=== PATIENT | male | born 1965 | race Caucasian/White ===

== ENCOUNTER 2021-02-19 18:05 | Outpatient (CLI) | payer BC | END 2021-02-19 18:06 | disposition EMS.NT | LOC: EMS 18:05 | DX: R55 Syncope and collapse (principal) ==

== ENCOUNTER 2021-02-19 19:14 | Emergency (ER) | payer BC, OTHER ==
--- NOTE | 2021-02-19 20:36 | ED Physician Documentation ---
History of Present Illness - Stated complaint Stated Complaint: PASSED OUT,GLF,FACE LAC - Chief complaint Chief Complaint: Neuro - History obtained from History obtained from: Patient - Additonal information Additional information: 55-year-old man with history of pneumonia 10 years ago with CHF at that time that he has since recovered from, currently only on lisinopril for high blood pressure, presents with coughing fits over the past couple of weeks. Patient is vaccinated against Covid but had an episode of Covid 3 weeks ago and has been having post Covid symptoms of postnasal drip and cough. Today he coughed so hard he states that he passed out, falling to the floor and cutting the bridge of his nose and also scraping his forehead. Unsure of his last tetanus shot. Review of Systems Ten Systems: 10 systems reviewed and negative Respiratory: reports: Cough Neurologic: reports: Syncope PD PAST MEDICAL HISTORY - Past Medical History Past Medical History: Yes Cardiovascular: Congestive heart failure, Hypertension Respiratory: Other - Present Medications Home Medications: Ambulatory Orders Medication Instructions Recorded Confirmed Lisinopril [Zestril] 20 mg PO 02/19/21 - Allergies Allergies/Adverse Reactions: Allergies Allergy/AdvReac Type Severity Reaction Status Date / Time ragweed pollen Allergy Mild Itching Verified 02/19/21 19:57 - Social History Does the pt smoke?: No Smoking Status: Never smoker Does the pt drink ETOH?: Yes ETOH Use: Liquor Does the pt have substance abuse?: No - POLST Patient has POLST: No PD ED PE NORMAL - Vitals Vital signs reviewed: Yes - General General: Alert and oriented X 3, No acute distress, Well developed/nourished - HEENT HEENT: Atraumatic, PERRL, EOMI - Neck Neck: Supple, no meningeal sign - Cardiac Cardiac: RRR - Respiratory Respiratory: No respiratory distress, Clear bilaterally - Abdomen Abdomen: Non tender, Non distended - Back Back: No CVA TTP - Derm Derm: Normal color, Warm and dry - Extremities Extremities: No deformity, No edema - Neuro Neuro: Alert and oriented X 3, shear tender 2-12 intact, No motor deficit, No sensory deficit, Normal speech - Psych Psych: Normal mood Results - Vitals Vitals: Vital Signs - 24 hr 02/19/21 02/19/21 02/19/21 19:18 19:49 21:20 Temperature 36.5 C Heart Rate 85 96 86 Respiratory 16 20 20 Rate Blood Pressure 160/80 H 163/116 H 139/105 H O2 Saturation 95 97 97 02/19/21 22:14 Temperature 36.5 C Heart Rate 82 Respiratory 16 Rate Blood Pressure 130/90 H O2 Saturation 98 Oxygen O2 Source Room air - EKG (time done) 1931 Rate: Rate (enter#) (86) Rhythm: NSR [place]: Other (LAFB) Intervals: Normal [place] Ischemia: Normal ST segments - Labs Labs: Laboratory Tests 02/19/21 02/19/21 02/19/21 21:13 21:13 21:13 WBC 8.0 RBC 5.06 Hgb 14.6 Hct 42.7 MCV 84.4 MCH 28.9 MCHC 34.2 RDW 12.8 Plt Count 305 MPV 8.8 Neut # (Auto) 4.9 Lymph # (Auto) 1.7 [place] # (Auto) 0.9 Eos # (Auto) 0.4 Baso # (Auto) 0.0 Absolute Nucleated RBC 0.00 Nucleated RBC % 0.0 Sodium 138 Potassium 3.7 Chloride 101 Carbon Dioxide 27 Anion Gap 10.0 BUN 15 Creatinine 0.8 Estimated GFR (MDRD) 101 Glucose 108 H Calcium 9.6 Total Bilirubin 0.5 AST 35 ALT 50 Alkaline Phosphatase 54 Troponin I High Sens 5.8 Total Protein 7.8 Albumin 4.1 Globulin 3.7 Albumin/Globulin Ratio 1.1 Lipase 41 PD MEDICAL DECISION MAKING - ED course ED course: 55yM presents with syncopal episode. 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 He has had normal echocardiogram in recent past and is currently just on lisinopril. strict return precautions discussed. patient will follow up with walk in clinic and cardiology. Departure - Departure Disposition: 01 Home, Self Care Clinical Impression: Syncope, Cough, Postnasal drip, Abrasion of nose Condition: Good Instructions: ED Syncope Vasovagal Follow-Up: Dorothy Conn MD [Provider Admit Priv/Credential] - Comments: You were seen in the emergency department for evaluation after a coughing fit resulting in passing out. Your labwork was normal and your EKG was a normal rhythm. You should follow up with [facility] and consider es tablishing care with a volunteer services specialist here. A referral has been provided. Return to the emergency department if you pass out again, have any new or worsening symptoms or other concerns. Over the counter medications to speak with your pharmacist about: - dextromethorphan (cough suppressant) - afrin nasal spray for congestion . 1 spray twice daily as needed Discharge Date/Time: 02/19/21 22:14
[2021-02-19] MEDS ORDERED: TETANUS/DIPHTHERIA/PERTUSSIS 0.5 ML SYRINGE IM ONE (21:04)
[2021-02-19] MEDS ORDERED: BACITRACIN ZINC OINT 1 PACKET TOP STA (21:06)
[2021-02-19 21:22] LABS: BASOPHILS % (AUTO) 0.4 %; EOSINOPHILS # (AUTO) 0.4 10^3/uL (0.0-0.7); EOSINOPHILS % (AUTO) 5.4 %; HCT - HEMATOCRIT 42.7 % (42.0-52.0); HGB - HEMOGLOBIN 14.6 g/dL (14.0-18.0); LYMPHOCYTES # (AUTO) 1.7 10^3/uL (1.5-3.5); LYMPHOCYTES % (AUTO) 21.8 %; MEAN CORPUSCULAR HEMOGLOBIN 28.9 pg (27.0-31.0); MEAN CORPUSCULAR HGB CONC 34.2 g/dL (32.0-36.0); MEAN CORPUSCULAR VOLUME 84.4 fL (80.0-94.0); MEAN PLATELET VOLUME 8.8 fL (7.4-11.4); MONOCYTES # (AUTO) 0.9 10^3/uL (0.0-1.0); MONOCYTES % (AUTO) 11.2 %; NEUTROPHILS # (AUTO) 4.9 10^3/uL (1.5-6.6); NEUTROPHILS % (AUTO) 60.8 %; PLT - PLATELET COUNT 305 10^3/uL (130-450); RED BLOOD COUNT 5.06 10^6/uL (4.70-6.10); RED CELL DISTRIBUTION WIDTH 12.8 % (12.0-15.0)
[2021-02-19 21:37] LABS: ALBUMIN 4.1 g/dL (3.2-5.5); ALBUMIN/GLOBULIN RATIO 1.1 (1.0-2.2); BILIRUBIN,TOTAL 0.5 mg/dL (0.2-1.0); CALCIUM 9.6 mg/dL (8.5-10.3); CREATININE 0.8 mg/dL (0.6-1.2); POTASSIUM 3.7 mmol/L (3.5-5.0); TOTAL PROTEIN 7.8 g/dL (6.7-8.2)
--- NOTE | 2021-02-19 21:51 | XRAY Report ---
PROCEDURE: Chest 1 View X-Ray INDICATIONS: Chest Pain TECHNIQUE: One view of the chest was acquired. COMPARISON: None. FINDINGS: Surgical changes and devices: None. Lungs and pleura: No pleural effusions or pneumothorax. Lungs are clear. Mediastinum: Mediastinal contours appear normal. Heart size is normal. Bones and chest wall: No suspicious bony lesions. Overlying soft tissues appear unremarkable. IMPRESSION: 1. No acute cardiopulmonary disease. Reviewed by: Ubaldo Platt MD on 02/19/2021 9:[address] [facility] Approved by: Ubaldo Platt MD on 02/19/2021 9:[address] [facility] Station ID: [id number]
[2021-02-19 22:16] VITALS: BP 130/90
== END 2021-02-19 22:14 | disposition home or self-care (01) ==
LOC: ED 19:14
DX: R55 Syncope and collapse (principal); R05.9 Cough, unspecified; R09.82 Postnasal drip; S00.31XA Abrasion of nose, initial encounter; S00.81XA Abrasion of other part of head, initial encounter; W08.XXXA Fall from other furniture, initial encounter; Z23 Encounter for immunization; I44.4 Left anterior fascicular block; I10 Essential (primary) hypertension
CPT/HCPCS: 36415; 71045; 80053; 83690; 84484; 85025; 90471; 90715; 93005; 99281; 99284; A9270

== ENCOUNTER 2021-04-24 08:36 | Outpatient (CLI) | payer BC ==
[2021-04-24 09:18] LABS: CHOL/HDL RATIO 5.8 (<5.0); CHOLESTEROL 244 mg/dL; HDL CHOLESTEROL 42 mg/dL; LDL CHOLESTEROL,CALCULATED 144 mg/dL; LDL/HDL RATIO 3.4 (<3.6); TRIGLYCERIDES 292 mg/dL; VLDL CHOLESTEROL 58 mg/dL
[2021-04-24 09:32] LABS: THYROID STIMULATING HORMONE 3.15 uIU/mL (0.34-5.60)
[2021-04-24 09:34] LABS: FREE T4 (FREE THYROXINE) 0.84 ng/dL (0.58-1.64)
[2021-04-24 11:57] LABS: ESTIMATED AVERAGE GLUCOSE 126 mg/dL (70-100)
== END 2021-04-24 08:37 | disposition home or self-care (01) ==
LOC: LAB 08:36
PROVIDERS: ATTEND Internal Medicine Cardiovascular Disease
DX: I42.9 Cardiomyopathy, unspecified (principal)
CPT/HCPCS: 36415; 80061; 83036; 83721; 84439; 84443

== ENCOUNTER 2022-07-22 15:56 | Outpatient (CLI) | payer BC, OTHER ==
[2022-07-22 16:26] LABS: CALCIUM 9.5 mg/dL (8.5-10.3); CREATININE 0.8 mg/dL (0.6-1.2); POTASSIUM 3.5 mmol/L (3.5-5.0)
== END 2022-07-22 15:57 | disposition home or self-care (01) ==
LOC: LAB 15:56
PROVIDERS: ATTEND Internal Medicine Cardiovascular Disease
DX: I10 Essential (primary) hypertension (principal)
CPT/HCPCS: 36415; 80048; 84403